=== PATIENT | female | born 1980 | race Caucasian/White ===

== ENCOUNTER 2016-12-26 08:30 | Emergency (ER) | payer OTHER ==
[~2016-12-26 08:30] MED LIST: PRI20 PO; PROZAC20 MG PO; TORADOL10 MG PO
[2016-12-26 10:54] LABS: BASOPHIL % 0.1 % (0-2); PLATELET COUNT 299 x10^3mcL (130-400)
[2016-12-26 11:53] LABS: CALCIUM 8.7 mg/dL (8.5-10.1); CARBON DIOXIDE 27.7 mmol/L (21-32); CHLORIDE SERUM 102 mmol/L (98-107); CREATININE SERUM 0.8 mg/dL (0.6-1.0); GFR1 > 60 mL/min; GLUCOSE SERUM 87 mg/dL (74-106); POTASSIUM SERUM 3.4 mmol/L (3.5-5.1); SODIUM SERUM 139 mmol/L (136-145)
[2016-12-26 11:56] LABS: ALBUMIN 3.5 g/dL (3.4-5.0); ALKALINE PHOSPHATASE 100 U/L (46-116); ALT/SGPT 28 U/L (14-59); AMYLASE 51 U/L (25-115); AST/SGOT 18 U/L (15-37); BILIRUBIN TOTAL 0.67 mg/dL (0.20-1.00); LIPASE 78 IU/L (73-393); TOTAL PROTEIN, SERUM 7.5 g/dL (6.4-8.2)
[2016-12-26 12:58] VITALS: BP 121/79
== END 2016-12-26 12:58 | disposition home or self-care (01) ==
LOC: ED 08:30
PROVIDERS: Emergency Medicine
DX: N39.0 Urinary tract infection, site not specified (principal); F41.9 Anxiety disorder, unspecified; Z98.51 Tubal ligation status
CPT/HCPCS: 83880; J0780; J1200; J1885; J3010; J7030

== ENCOUNTER 2017-01-02 09:19 | Inpatient (IN) | payer OTHER ==
[~2017-01-02] VITALS: Ht 157.5 cm; Wt 118.0 kg
[2017-01-02 12:34] LABS: BASOPHIL % 0.4 % (0-2); RED CELL DISTRIBUTION WIDTH 13.6 % (11.5-14.5)
[2017-01-02 12:35] LABS: PLATELET COUNT 407 x10^3mcL (130-400)
[2017-01-02 12:42] LABS: CALCIUM 8.8 mg/dL (8.5-10.1); CHLORIDE SERUM 106 mmol/L (98-107); CREATININE SERUM 0.7 mg/dL (0.6-1.0); GFR1 > 60 mL/min; GLUCOSE SERUM 90 mg/dL (74-106); POTASSIUM SERUM 3.7 mmol/L (3.5-5.1); SODIUM SERUM 141 mmol/L (136-145)
[2017-01-02 12:47] LABS: ALBUMIN 3.4 g/dL (3.4-5.0); ALKALINE PHOSPHATASE 94 U/L (46-116); ALT/SGPT 36 U/L (14-59); AST/SGOT 27 U/L (15-37); BILIRUBIN TOTAL 0.25 mg/dL (0.20-1.00); LIPASE 101 IU/L (73-393); TOTAL PROTEIN, SERUM 7.3 g/dL (6.4-8.2)
[2017-01-02 13:00] LABS: CHOLESTEROL/HDL RATIO 3.1; MAGNESIUM 2.1 mg/dL (1.8-2.4); PHOSPHOROUS 2.8 mg/dL (2.5-4.9)
[2017-01-02 13:05] VITALS: BP 106/70
[2017-01-02 13:23] LABS: FREE T4 0.89 ng/dL (0.76-1.46); FREE THYROXINE INDEX 2.8 ug/dL (1.4-4.5); T4(THYROXINE) 8.1 ug/dL (4.7-13.3)
[2017-01-02 13:26] VITALS: BP 106/70
[2017-01-02 13:29] LABS: T3 TOTAL 1.21 ng/mL
[2017-01-02 20:38] VITALS: BP 112/74
[2017-01-03 01:41] LABS: microscopic required? NO
[2017-01-03 02:27] LABS: urine erythrocyte NEGATIVE (NEGATIVE)
[2017-01-03 02:54] LABS: AMPHETAMINE QUAL UR NONE DETECTED (NEG <=1000)
[2017-01-03 05:41] LABS: BASOPHIL % 0.5 % (0-2); PLATELET COUNT 341 x10^3mcL (130-400); RED CELL DISTRIBUTION WIDTH 13.4 % (11.5-14.5)
[2017-01-03 05:45] LABS: CALCIUM 7.6 mg/dL (8.5-10.1); CARBON DIOXIDE 27.5 mmol/L (21-32); CHLORIDE SERUM 107 mmol/L (98-107); CREATININE SERUM 0.8 mg/dL (0.6-1.0); GFR1 > 60 mL/min; GLUCOSE SERUM 87 mg/dL (74-106); POTASSIUM SERUM 3.7 mmol/L (3.5-5.1); SODIUM SERUM 140 mmol/L (136-145)
[2017-01-03 06:00] LABS: ALBUMIN 2.7 g/dL (3.4-5.0)
[2017-01-03 06:21] VITALS: BP 100/60
[2017-01-03 08:51] VITALS: BP 126/64
[2017-01-03 13:41] VITALS: BP 124/73
[2017-01-03 15:26] VITALS: BP 124/73
[2017-01-03] MEDS ORDERED: METP PO (16:12)
[2017-01-03] MEDS ORDERED: MAGL PO ×2 (16:16→16:34)
[2017-01-03] MEDS ORDERED: TOR10 PO ×2 (16:20→16:34)
[2017-01-03] MEDS ORDERED: METAMUCIL FIBE3.4 GM GT (16:34)
[2017-01-03] MEDS ORDERED: DOXYCYCLINE HY100 M2 PO (17:51)
== END 2017-01-03 17:03 | disposition home or self-care (01) | DRG 694 ==
LOC: ED 09:19 → DU 12:25
PROVIDERS: Emergency Medicine; ADMIT Family Medicine
DX: N20.0 Calculus of kidney (principal); Z68.42 Body mass index [BMI] 45.0-49.9, adult; E66.01 Morbid (severe) obesity due to excess calories; F12.10 Cannabis abuse, uncomplicated; D47.3 Essential (hemorrhagic) thrombocythemia; E83.51 Hypocalcemia; Z90.49 Acquired absence of other specified parts of digestive tract; Z98.51 Tubal ligation status
CPT/HCPCS: 80307; 83880; 84439; J1885; J2060; J2270; J2405; J2550; J2765; J7030

== ENCOUNTER 2017-12-21 19:06 | Emergency (ER) | payer OTHER ==
[~2017-12-21] VITALS: Ht 160 cm; Wt 128.0 kg
[~2017-12-21 19:06] MED LIST changes: +DOXYCYCLINE HY100 M2 PO; +MAGL PO; +METAMUCIL FIBE3.4 GM GT; +METP PO; +TOR10 PO
[2017-12-21 19:14] VITALS: Ht 160 cm; Wt 128.0 kg
[2017-12-21 22:26] VITALS: BP 134/88
== END 2017-12-21 22:26 | disposition home or self-care (01) ==
LOC: ED 19:06
DX: R07.89 Other chest pain (principal); M25.561 Pain in right knee; M25.571 Pain in right ankle and joints of right foot; M79.644 Pain in right finger(s); M54.5 Low back pain; Z88.5 Allergy status to narcotic agent; V89.2XXA Person injured in unspecified motor-vehicle accident, traffic, initial encounter; Y93.73 Activity, racquet and hand sports; Y92.89 Other specified places as the place of occurrence of the external cause; Y99.8 Other external cause status
CPT/HCPCS: Q0092; Q0162

== ENCOUNTER 2019-02-05 12:33 | Emergency (ER) | payer OTHER ==
[~2019-02-05] VITALS: Ht 157.5 cm; Wt 117.0 kg
[2019-02-05 12:39] VITALS: Ht 157.5 cm; Wt 117.0 kg
[2019-02-05 15:16] LABS: BASOPHIL % 0.2 % (0-2); PLATELET COUNT 326 x10^3mcL (130-400)
[2019-02-05 15:17] LABS: RED CELL DISTRIBUTION WIDTH 14.8 % (11.5-14.5)
[2019-02-05 15:19] LABS: CARBON DIOXIDE 30.8 mmol/L (21-32); CHLORIDE SERUM 103 mmol/L (98-107); GFR1 > 60 mL/min; GLUCOSE SERUM 77 mg/dL (74-106); POTASSIUM SERUM 4.1 mmol/L (3.5-5.1); SODIUM SERUM 142 mmol/L (136-145)
[2019-02-05 19:33] VITALS: BP 120/83
== END 2019-02-05 20:00 | disposition home or self-care (01) ==
LOC: ED 12:33
PROVIDERS: Emergency Medicine
DX: B34.9 Viral infection, unspecified (principal); J02.9 Acute pharyngitis, unspecified; R07.89 Other chest pain; R10.31 Right lower quadrant pain; F41.9 Anxiety disorder, unspecified; I45.10 Unspecified right bundle-branch block; Z88.6 Allergy status to analgesic agent; Z98.51 Tubal ligation status
CPT/HCPCS: 36415; J1885; J3010; J7512; Q0092

== ENCOUNTER 2019-04-07 11:03 | Emergency (ER) | payer OTHER ==
[~2019-04-07] VITALS: Ht 157.5 cm; Wt 117.9 kg
[2019-04-07 11:07] VITALS: Ht 157.5 cm; Wt 117.9 kg
[2019-04-07 13:01] LABS: BASOPHIL % 0.3 % (0-2); PLATELET COUNT 332 x10^3mcL (130-400)
[2019-04-07 13:02] LABS: RED CELL DISTRIBUTION WIDTH 14.7 % (11.5-14.5)
[2019-04-07 13:06] LABS: CALCIUM 9.1 mg/dL (8.5-10.1); CARBON DIOXIDE 25.3 mmol/L (21-32); CHLORIDE SERUM 105 mmol/L (98-107); CREATININE SERUM 0.9 mg/dL (0.6-1.0); GFR1 > 60 mL/min; GLUCOSE SERUM 81 mg/dL (74-106); POTASSIUM SERUM 3.9 mmol/L (3.5-5.1); SODIUM SERUM 141 mmol/L (136-145)
[2019-04-07 13:11] LABS: ALBUMIN 3.6 g/dL (3.4-5.0); ALKALINE PHOSPHATASE 112 U/L (46-116); ALT/SGPT 36 U/L (14-59); AST/SGOT 24 U/L (15-37); BILIRUBIN TOTAL 0.43 mg/dL (0.20-1.00); TOTAL PROTEIN, SERUM 7.9 g/dL (6.4-8.2)
[2019-04-07 15:23] VITALS: BP 126/85
== END 2019-04-07 15:23 | disposition home or self-care (01) ==
LOC: ED 11:03
DX: R10.13 Epigastric pain (principal); R10.813 Right lower quadrant abdominal tenderness; R07.89 Other chest pain; R11.2 Nausea with vomiting, unspecified; R19.7 Diarrhea, unspecified; Z85.41 Personal history of malignant neoplasm of cervix uteri; Z85.42 Personal history of malignant neoplasm of other parts of uterus; Z90.710 Acquired absence of both cervix and uterus; Z90.49 Acquired absence of other specified parts of digestive tract; Z98.51 Tubal ligation status; Z88.1 Allergy status to other antibiotic agents
CPT/HCPCS: 36415; J1885; Q0092; Q0162

== ENCOUNTER 2019-09-01 11:55 | Emergency (ER) | payer OTHER ==
[~2019-09-01] VITALS: Ht 157.5 cm; Wt 122.5 kg
[2019-09-01 12:11] VITALS: Ht 157.5 cm; Wt 122.5 kg
[2019-09-01 15:39] VITALS: BP 156/79
== END 2019-09-01 15:39 | disposition home or self-care (01) ==
LOC: ED 11:55
DX: J02.9 Acute pharyngitis, unspecified (principal); Z98.51 Tubal ligation status; Z90.711 Acquired absence of uterus with remaining cervical stump; Z88.6 Allergy status to analgesic agent; Z88.8 Allergy status to other drugs, medicaments and biological substances
CPT/HCPCS: J1100; J7613

== ENCOUNTER 2019-10-20 16:30 | Emergency (ER) | payer OTHER ==
[~2019-10-20] VITALS: Ht 157.5 cm; Wt 119.7 kg
[2019-10-20 16:55] VITALS: Ht 157.5 cm; Wt 119.7 kg
[2019-10-20 18:04] LABS: BASOPHIL % 0.4 % (0-2); PLATELET COUNT 309 x10^3mcL (130-400); RED CELL DISTRIBUTION WIDTH 13.3 % (11.5-14.5)
[2019-10-20 18:14] LABS: CALCIUM 8.9 mg/dL (8.5-10.1); CARBON DIOXIDE 28.6 mmol/L (21-32); CHLORIDE SERUM 105 mmol/L (98-107); CREATININE SERUM 0.8 mg/dL (0.6-1.0); GFR1 > 60 mL/min; GLUCOSE SERUM 91 mg/dL (74-106); POTASSIUM SERUM 3.7 mmol/L (3.5-5.1); SODIUM SERUM 143 mmol/L (136-145)
[2019-10-20 18:19] LABS: ALBUMIN 3.6 g/dL (3.4-5.0); ALKALINE PHOSPHATASE 109 U/L (46-116); ALT/SGPT 45 U/L (14-59); AST/SGOT 22 U/L (15-37); BILIRUBIN TOTAL 0.3 mg/dL (0.20-1.00); TOTAL PROTEIN, SERUM 7.8 g/dL (6.4-8.2)
[2019-10-20 21:09] LABS: UA SPECIFIC GRAVITY 1.015 (1.005-1.035); microscopic required? YES; urine erythrocyte NEGATIVE (NEGATIVE)
[2019-10-20 21:25] VITALS: BP 125/87
== END 2019-10-20 21:25 | disposition home or self-care (01) ==
LOC: ED 16:30
PROVIDERS: Emergency Medicine
DX: N39.0 Urinary tract infection, site not specified (principal); N83.202 Unspecified ovarian cyst, left side; N83.201 Unspecified ovarian cyst, right side; N76.0 Acute vaginitis; Z98.51 Tubal ligation status; Z90.710 Acquired absence of both cervix and uterus; Z88.6 Allergy status to analgesic agent; Z88.8 Allergy status to other drugs, medicaments and biological substances
CPT/HCPCS: 36415; 87491; 87591

== ENCOUNTER 2020-10-31 18:43 | Emergency (ER) | payer OTHER, SELFPAY ==
[~2020-10-31] VITALS: Ht 157.5 cm; Wt 124.7 kg
[2020-10-31 18:48] VITALS: Ht 157.5 cm; Wt 124.7 kg
[2020-10-31 20:00] VITALS: BP 109/61
== END 2020-10-31 20:37 | disposition home or self-care (01) ==
LOC: ED 18:43
DX: R51.9 Headache, unspecified (principal); R53.83 Other fatigue; Z98.51 Tubal ligation status; Z90.710 Acquired absence of both cervix and uterus; Z88.6 Allergy status to analgesic agent
CPT/HCPCS: 82962; J1885; J8597